=== PATIENT | female | born 1985 | race African-American/Black ===

== ENCOUNTER 2018-08-31 03:29 | Emergency (ER) | payer MEDICAID ==
[~2018-08-31] VITALS: Ht 167.6 cm; Wt 86.2 kg
[2018-08-31 03:36] VITALS: BP 131/88
[2018-08-31 07:10] LABS: Urine Bacteria FEW /hpf (None Seen); Urine Blood Negative /uL (Negative); Urine Mucus FEW (None Seen); Urine Specific Gravity 1.022 (1.001-1.035); Urine WBC 5 /hpf (0 - 5)
== END 2018-08-31 05:07 | disposition left against medical advice (07) ==
LOC: EDBD 03:29 → ER 03:34
DX: R42 Dizziness and giddiness (principal); Z53.21 Procedure and treatment not carried out due to patient leaving prior to being seen by health care provider
CPT/HCPCS: 81001